=== PATIENT | male | born 1995 | race African-American/Black ===

== ENCOUNTER 2016-11-18 03:58 | Emergency (ER) | payer OTHER ==
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
[2016-11-18 05:12] VITALS: BP 122/69
== END 2016-11-18 05:10 | disposition home or self-care (01) ==
LOC: ER 03:58
DX: S09.90XA Unspecified injury of head, initial encounter (principal); S00.91XA Abrasion of unspecified part of head, initial encounter; W19.XXXA Unspecified fall, initial encounter; F10.10 Alcohol abuse, uncomplicated
CPT/HCPCS: 70450; 99284